=== PATIENT | female | born 1955 | race Caucasian/White ===

== ENCOUNTER 2017-03-25 13:15 | Emergency (ER) | payer SELFPAY ==
[~2017-03-25 13:15] MED LIST: PRED20 PO; VENTAER INH; Z.0.NO CURRENT MEDS; ZITH250T PO
[2017-03-25 13:17] VITALS: BP 129/73; PULSE 71; RESP 16; TEMP 97.8; O2SAT 100
--- NOTE | 2017-03-25 13:20 | PD ---
Physical Exam Time Seen by Provider: 13:19 Narrative 61 y/o female presents for evaluation of LLQ abdominal pain for a few weeks. Also sneezing, sore throat for 3 weeks. VSS Seen at triage desk. Awaiting bed placement. Data Data Last Documented VS Vital Signs Date Time Temp Pulse Resp B/P Pulse Ox O2 Delivery O2 Flow Rate FiO2 03/25/17 13:17 97.8 71 16 129/73 100 MDM Medical Record Reviewed: Yes Supervised Visit with JAMES: Jayjay Vail March 25, 2017 13:20
[2017-03-25 13:45] VITALS: BP 104/66; PULSE 57; RESP 19; O2SAT 97
[2017-03-25] MEDS ORDERED: SODIUM CHLORIDE 0.9% FLUSH 10 ML FLUSH IV FLUSH PRN (13:45)
[2017-03-25] MEDS ORDERED: KETOROLAC TROMETHAMINE 30 MG/ML (IVP) VIAL IVP ONE (13:45)
[2017-03-25 14:05] LABS: BASOPHIL % 0.4 % (0.0-2.0); EOSINOPHIL # 0.1 TH/MM3 (0-0.4); HEMATOCRIT 38.4 % (35.0-46.0); HEMO FLAGS DIFF FINAL; LYMPHOCYTE # 1.7 TH/MM3 (1.0-4.8); MEAN CORPUSCULAR HGB CONC 33.7 % (32.0-36.0); NEUT % 75.6 % (16.0-70.0); PLATELET COUNT 277 TH/MM3 (150-450); RED BLOOD COUNT 4.31 MIL/MM3 (4.00-5.30); RED CELL DISTRIBUTION WIDTH 13.8 % (11.6-17.2); WHITE BLOOD COUNT 10.5 TH/MM3 (4.0-11.0)
[2017-03-25 14:08] LABS: BLOOD, URINE NEG (NEG); COMMENT (UR) CULT NOT INDICATED; CULTURE IF INDICATED CULT NOT INDICATED; GLUCOSE,URINE NEG (NEG); KETONE, URINE NEG (NEG); MUCUS URINE FEW /lpf (OCC); NITRITE,URINE NEG (NEG); PH, URINE 5.5 (5.0-8.5); SQUAMOUS EPITHELIAL CELL URINE 1 /hpf (0-5); URINE COLOR YELLOW (YELLW/STRAW)
[2017-03-25] MEDS ORDERED: DIATRIZOATE MEGLUM/DIATRIZOATE SOD 9 ML CUP ONE (14:21)
[2017-03-25 14:26] LABS: BICARBONATE 30.6 MEQ/L (21.0-32.0); POTASSIUM 3.9 MEQ/L (3.5-5.1)
[2017-03-25 15:28] VITALS: BP 132/80; PULSE 51; RESP 16; O2SAT 100
[2017-03-25] MEDS ORDERED: IOHEXOL 350 MG/ML 10 ML VIAL (for RAD DIAG) IV ONE (16:02)
--- NOTE | 2017-03-25 16:09 | PD ---
HPI Chief Complaint: Abdominal Pain Time Seen by Provider: 13:25 Travel History International Travel<30 days: No Contact w/Intl Traveler<30days: No Traveled to known affect area: No History of Present Illness HPI Patient is a pleasant 61-year-old female here with complaint of abdominal pain. Patient states that she's had previous uterine cancer, status post hysterectomy. For the last several weeks she has had pain and discomfort in the left lower quadrant of the abdomen. Patient attributes her symptoms to the ovary, noting historical ovarian cysts. Patient states the pain is mild, intermittent. She has not noticed any associated bowel, urinary symptoms. No abdominal distention, fullness, nausea vomiting, fevers or chills. PFSH Past Medical History Hx Anticoagulant Therapy: Yes Cancer: Yes (ovarian) Cardiac Catheterization: Yes (2 stents) Cardiovascular Problems: Yes High Cholesterol: Yes Chest Pain: Yes Hypertension: Yes Myocardial Infarction: Yes (2 stents) : 1 Para: 1 Past Surgical History Hysterectomy: Yes (ovarian ca) Tonsillectomy: Yes Social History Alcohol Use: No Tobacco Use: Yes Substance Use: No Allergies-Medications (Allergen,Severity, Reaction): Coded Allergies: No Known Allergies (Verified , 03/25/17) Reported Meds & Prescriptions Reported Meds & Active Scripts Active Deltasone (Prednisone) 20 Mg Tab 20 Mg PO BID Zithromax Z-Ceferino (Azithromycin) 250 Mg Tab 250 Mg PO DIRECTED 5 Days 500 MG (2 TABLETS) PO ON DAY 1, THEN 250 MG (1 TABLET) PO ON DAYS 2 TO 5. Ventolin Hfa (Albuterol Sulfate) 18 Gm Aero 2 Puff INH Q4H PRN * SHAKE WELL BEFORE USE * Reported No Current Meds (Miscellaneous Medication) [facility] [place] Review of Systems Except as stated in HPI: all other systems reviewed are Neg Physical Exam Narrative GENERAL: Well-appearing female, cachectic in no acute distress SKIN: Focused skin assessment warm/dry. HEAD: Normocephalic. EYES: No scleral icterus. No injection or drainage. ENT: Mucous membranes pink and moist. NECK: Supple CARDIOVASCULAR: Regular rate and rhythm. RESPIRATORY: No accessory muscle use. GASTROINTESTINAL: Abdomen soft, nondistended. Mild left lower quadrant tenderness to palpation without rebound or guarding. GENITOURINARY: Normal external female genitalia. Speculum examination reveals hysterectomy vaginal cuff intact, no vaginal irritation, physiologic appearing discharge. No adnexal pain on exam, her pain is more superior in the abdomen MUSCULOSKELETAL: Normal gait NEUROLOGICAL: Awake and alert. motor grossly within normal limits. Normal speech. PSYCHIATRIC: Appropriate mood and affect; insight and judgment normal. Data Data Last Documented VS Vital Signs Date Time Temp Pulse Resp B/P Pulse Ox O2 Delivery O2 Flow Rate FiO2 03/25/17 15:28 51 16 132/80 100 Room Air 03/25/17 13:17 97.8 Orders Basic Metabolic Panel (Bmp) (03/25/17 13:36) Complete Blood Count With Diff (03/25/17 13:36) Urinalysis - C+S If Indicated (03/25/17 13:36) Ct Abd/Pel W Iv Contrast(Rout) (03/25/17 13:36) Iv Access Insert/Monitor (03/25/17 13:36) Oximetry (03/25/17 13:36) Sodium Chloride 0.9% Flush (Ns Flush) (03/25/17 13:45) Ketorolac Inj (Toradol Inj) (03/25/17 13:45) Oral Contrast - Adult (03/25/17 13:51) Diatrizoate Liq ( Gastroluiz Liq) (03/25/17 14:21) Iohexol 350 Inj (Omnipaque 350 Inj) (03/25/17 16:02) Labs Laboratory Tests Test 03/25/17 03/25/17 13:40 13:45 Urine Color YELLOW Urine Turbidity CLEAR Urine pH 5.5 Urine Specific [place] 1.019 Urine Protein NEG mg/dL Urine Glucose (UA) NEG mg/dL Urine Ketones NEG mg/dL Urine Occult Blood NEG Urine Nitrite NEG Urine Bilirubin NEG Urine Urobilinogen LESS THAN 2.0 MG/DL Urine Leukocyte Esterase NEG Urine RBC LESS THAN 1 /hpf Urine WBC LESS THAN 1 /hpf Urine Squamous Epithelial 1 /hpf Cells Urine Mucus FEW /lpf Microscopic Urinalysis Comment CULT NOT INDICATED White Blood Count 10.5 TH/MM3 Red Blood Count 4.31 MIL/MM3 Hemoglobin 12.9 GM/DL Hematocrit 38.4 % Mean Corpuscular Volume 89.0 FL Mean Corpuscular Hemoglobin 30.0 PG Mean Corpuscular Hemoglobin 33.7 % Concent Red Cell Distribution Width 13.8 % Platelet Count 277 TH/MM3 Mean Platelet Volume 9.0 FL Neutrophils (%) (Auto) 75.6 % Lymphocytes (%) (Auto) 16.0 % Monocytes (%) (Auto) 7.0 % Eosinophils (%) (Auto) 1.0 % Basophils (%) (Auto) 0.4 % Neutrophils # (Auto) 8.0 TH/MM3 Lymphocytes # (Auto) 1.7 TH/MM3 Monocytes # (Auto) 0.7 TH/MM3 Eosinophils # (Auto) 0.1 TH/MM3 Basophils # (Auto) 0.0 TH/MM3 CBC Comment DIFF FINAL Differential Comment Sodium Level 140 MEQ/L Potassium Level 3.9 MEQ/L Chloride Level 106 MEQ/L Carbon Dioxide Level 30.6 MEQ/L Anion Gap 3 MEQ/L Blood Urea Nitrogen 13 MG/DL Creatinine 0.94 MG/DL Estimat Glomerular Filtration 61 ML/MIN Rate Random Glucose 85 MG/DL Calcium Level 8.5 MG/DL MDM Medical Decision Making Medical Screen Exam Complete: Yes Emergency Medical Condition: Yes Medical Record Reviewed: Yes Differential Diagnosis 61-year-old female with history of uterine cancer status post hysterectomy with several weeks of intermittent left lower quadrant abdominal pain. This does not appear to be ovarian on exam, but rather more up in the superior aspect of the lower abdomen. Differential includes diverticulitis, colitis, ureterolithiasis, UTI, ovarian cyst, mass, torsion Narrative Course Patient placed on monitor, IV established and blood obtained. Given 30 mg Toradol. CBC, BMP, urinalysis obtained and unremarkable. CT abdomen and pelvis unremarkable. Patient reassured and given outpatient follow-up with primary care if symptoms persist. Diagnosis Primary Impression: Abdominal pain Qualified Code: R10.32 - Left lower quadrant pain Referrals: [facility] call for appointment Additional Instructions: Tylenol, ibuprofen as needed for pain. Follow up with outpatient primary care provided as discussed if symptoms persist. Med/Other Pt SpecificInfo: No Change to Meds Disposition: 01 DISCHARGE HOME Condition: Stable Jigna Zeng MD March 25, 2017 16:09
--- NOTE | 2017-03-25 16:25 | RADRPT ---
EXAM DATE/TIME: 03/25/2017 16:06 [place] COMPARISON: No previous studies available for comparison. INDICATIONS : Left lower quadrant abdomen pain. IV CONTRAST: 100 cc Omnipaque 350 (iohexol) IV ORAL CONTRAST: Partial prescribed oral contrast ingested. RADIATION DOSE: 5.36 CTDIvol (mGy) MEDICAL HISTORY : Cardiovascular disease. Carcinoma, not otherwise specified. SURGICAL HISTORY : Hysterectomy. ENCOUNTER: Initial ACUITY: 1 day PAIN SCALE: 5/10 LOCATION: Left lower quadrant TECHNIQUE: Volumetric scanning of the abdomen and pelvis was performed. Using automated exposure control and ad justment of the mA and/or kV according to patient size, radiation dose was kept as low as reasonably achievable to obtain optimal diagnostic quality images. FINDINGS: LOWER LUNGS: The visualized lower lungs are clear. LIVER: Homogeneous density without lesion. There is no dilation of the biliary tree. No calcified gallston es. SPLEEN: Normal size without lesion. PANCREAS: Within normal limits. KIDNEYS: Normal in size and shape. There is no mass, stone or hydronephrosis. ADRENAL GLANDS: Within normal limits. VASCULAR: There is no aortic aneurysm. BOWEL/MESENTERY: The stomach, small bowel, and colon demonstrate no acute abnormality. There is no free intraperitone al air or fluid. ABDOMINAL WALL: Within normal limits. RETROPERITONEUM: There is no lymphadenopathy. BLADDER: No wall thickening or mass. REPRODUCTIVE: Within normal limits. INGUINAL: There is no lymphadenopathy or hernia. MUSCULOSKELETAL: Within normal limits for patient age. CONCLUSION: Normal examination. Mando Uriarte Jr., MD on March 25, 2017 at 16:21 Board Certified Radiologist. This report was verified electronically.
[2017-03-25 16:47] VITALS: BP 132/80; PULSE 64; RESP 16; O2SAT 100
[2017-03-25 16:48] VITALS: BP 132/80
== END 2017-03-25 16:55 | disposition home or self-care (01) ==
LOC: NEPD 13:15
DX: I10 Essential (primary) hypertension (principal); I25.2 Old myocardial infarction; Z72.0 Tobacco use; Z85.43 Personal history of malignant neoplasm of ovary; Z90.710 Acquired absence of both cervix and uterus; R10.32 Left lower quadrant pain
CPT/HCPCS: 74177; 80048; 81001; 85025; 96374; 99284; J1885; Q9963; Q9967